=== PATIENT | male | born 1975 | race Two or more races ===

== ENCOUNTER 2022-11-03 13:42 | Day surgery (SDC) | payer SELFPAY ==
[2022-11-03] MEDS ORDERED: ACETAMINOPHEN 1000 MG/100 ML BAG IVPB ONE (15:23)
[2022-11-03] MEDS ORDERED: SODIUM CHLORIDE 0.9% 500 ML INFUS.BAG IV ONE ×2 (15:47→19:23)
[2022-11-03 16:19] LABS: BASO % 0.2 % (0-2.0); EOS % 0.3 % (0-4.5); HEMATOCRIT 43.4 % (35.4-49); HEMOGLOBIN 14.7 GM/dL (11.7-16.9); LYMPH % 15.2 % (8-40); MCH 32.7 pg (25.7-33.7); MEAN CELL VOLUME 96.4 fl (80-96); MEAN PLT VOLUME 8.1 fl (7.5-11.1); MONO % 8.4 % (3.8-10.2); NEUT % 75.9 % (42.8-82.8); PLATELET COUNT 334 10^3/uL (134-434); WHITE BLOOD COUNT 10.5 K/mm3 (4.0-10.0)
[2022-11-03 16:34] LABS: POTASSIUM 4.7 mmol/L (3.5-5.1); PROTHROMBIN TIME (PATIENT) 11.6 SEC (9.7-13.0)
[2022-11-03 16:36] LABS: CALCIUM 9.5 mg/dL (8.5-10.1)
[2022-11-03 16:37] LABS: BLOOD UREA NITROGEN 18.2 mg/dL (7-18)
[2022-11-03 16:39] LABS: CREATININE 1.6 mg/dL (0.55-1.3)
[2022-11-03 16:41] LABS: BILIRUBIN,TOTAL 0.7 mg/dL (0.2-1); TOT PROT 7.8 g/dl (6.4-8.2)
[2022-11-03 16:47] LABS: EPI CELLS 12 /uL (0-25.1); HYALINE CASTS 0 /uL (0-3.1); PH,URINE 6.5 (5.0-8.0); URINE APPEARANCE CLEAR; URINE BACTERIA 15 /uL (0-1359); URINE BILIRUBIN NEGATIVE (NEGATIVE); URINE COLOR YELLOW; URINE GLUCOSE (UA) NEGATIVE (NEGATIVE); URINE KETONE 2+ (NEGATIVE); URINE LEUK ESTERASE TRACE (NEGATIVE); URINE NITRITE NEGATIVE (NEGATIVE); URINE PROTEIN TRACE (NEGATIVE); URINE RBC 13 /uL (0-23.9); URINE WBC 32 /uL (0-25.8)
[2022-11-03] MEDS ORDERED: TAMSULOSIN HCL 0.4 MG CAP PO ONE (19:23)
[2022-11-03] MEDS ORDERED: CEFTRIAXONE 1,000 MG in DEXTROSE 5%-WATER - 50 ML IVPB ONE (19:23)
[2022-11-03] MEDS ORDERED: TAMSULOSIN HCL 0.4 MG CAP ONE (19:52)
[2022-11-03] MEDS ORDERED: CEFTRIAXONE 1 GM/50 ML BAG ONE (19:52)
[2022-11-03] MEDS ORDERED: hydrALAZINE HCL 20 MG/ML VIAL IVPUSH ONE ×2 (20:01→23:30)
[2022-11-03] MEDS ORDERED: hydrALAZINE HCL 20 MG/ML VIAL ONE ×2 (20:09→23:42)
[2022-11-04] MEDS: SODIUM CHLORIDE 1,000 ML IV SCH (00:33)
[2022-11-04 04:22] VITALS: BMI 25.0
[2022-11-04] MEDS: traMADol HCL 50 MG TABLET PO PRN ×2 (06:57→21:44)
[2022-11-04] MEDS: TAMSULOSIN HCL 0.4 MG CAP PO SCH (08:23)
[2022-11-04 09:16] LABS: BASO % 0.4 % (0-2.0); EOS % 0.4 % (0-4.5); HEMATOCRIT 38.1 % (35.4-49); HEMOGLOBIN 12.5 GM/dL (11.7-16.9); LYMPH % 19.8 % (8-40); MCH 32.2 pg (25.7-33.7); MCHC 32.9 g/dl (32.0-35.9); MEAN CELL VOLUME 97.7 fl (80-96); MEAN PLT VOLUME 8.7 fl (7.5-11.1); MONO % 8.5 % (3.8-10.2); NEUT % 70.9 % (42.8-82.8); PLATELET COUNT 311 10^3/uL (134-434); RDW 12.7 % (11.9-15.9); WHITE BLOOD COUNT 7.5 K/mm3 (4.0-10.0)
[2022-11-04 09:30] LABS: POTASSIUM 4.3 mmol/L (3.5-5.1)
[2022-11-04 09:34] LABS: CALCIUM 8.4 mg/dL (8.5-10.1)
[2022-11-04 09:35] LABS: BLOOD UREA NITROGEN 18.6 mg/dL (7-18)
[2022-11-04 09:38] LABS: CREATININE 1.4 mg/dL (0.55-1.3)
[2022-11-04] MEDS: CEFTRIAXONE 1 GM in DEXTROSE 5%-WATER - 50 ML IVPB SCH (09:58)
[2022-11-04] MEDS: amLODIPine BESYLATE 5 MG TABLET (FP) PO SCH (09:58)
[2022-11-04] MEDS: HEPARIN NA (PORCINE) 5,000 UNITS/ML 1ML VIAL SQ SCH ×2 (14:29→21:49)
[2022-11-05] MEDS: SODIUM CHLORIDE 1,000 ML IV SCH ×3 (03:22→21:52)
[2022-11-05] MEDS: HEPARIN NA (PORCINE) 5,000 UNITS/ML 1ML VIAL SQ SCH ×3 (06:36→21:52)
[2022-11-05 09:44] LABS: BASO % 0.3 % (0-2.0); EOS % 1.3 % (0-4.5); HEMATOCRIT 37.9 % (35.4-49); HEMOGLOBIN 12.5 GM/dL (11.7-16.9); LYMPH % 21.4 % (8-40); MCH 31.8 pg (25.7-33.7); MCHC 32.9 g/dl (32.0-35.9); MEAN CELL VOLUME 96.6 fl (80-96); MEAN PLT VOLUME 8.4 fl (7.5-11.1); MONO % 9.6 % (3.8-10.2); NEUT % 67.4 % (42.8-82.8); PLATELET COUNT 323 10^3/uL (134-434); RBC 3.93 M/mm3 (4.00-5.60); RDW 12.3 % (11.9-15.9); WHITE BLOOD COUNT 7.4 K/mm3 (4.0-10.0)
[2022-11-05 09:45] LABS: INR 1.03 (0.83-1.09); PROTHROMBIN TIME (PATIENT) 11.9 SEC (9.7-13.0)
[2022-11-05] MEDS: CEFTRIAXONE 1 GM in DEXTROSE 5%-WATER - 50 ML IVPB SCH (09:47)
[2022-11-05] MEDS: TAMSULOSIN HCL 0.4 MG CAP PO SCH (09:48)
[2022-11-05] MEDS: amLODIPine BESYLATE 5 MG TABLET (FP) PO SCH (09:48)
[2022-11-05 10:01] LABS: POTASSIUM 4.4 mmol/L (3.5-5.1)
[2022-11-05 10:04] LABS: CALCIUM 8.6 mg/dL (8.5-10.1)
[2022-11-05 10:05] LABS: BLOOD UREA NITROGEN 16.6 mg/dL (7-18); MAGNESIUM 1.9 mg/dL (1.8-2.4)
[2022-11-05 10:08] LABS: CREATININE 1.4 mg/dL (0.55-1.3)
[2022-11-05 10:10] LABS: TOT PROT 6.1 g/dl (6.4-8.2)
[2022-11-05] MEDS ORDERED: amLODIPine BESYLATE 5 MG TABLET (FP) PO ONE (18:57)
[2022-11-05] MEDS: BACITRACIN ZINC 15 GM TUBE TOPICAL OINTMENT TP SCH (21:53)
[2022-11-06] MEDS: SODIUM CHLORIDE 1,000 ML IV SCH (05:10)
[2022-11-06] MEDS ORDERED: hydrALAZINE HCL 10 MG TABLET PO ONE (08:45)
[2022-11-06] MEDS: CEFTRIAXONE 1 GM in DEXTROSE 5%-WATER - 50 ML IVPB SCH (09:22)
[2022-11-06] MEDS: TAMSULOSIN HCL 0.4 MG CAP PO SCH (09:22)
[2022-11-06] MEDS: BACITRACIN ZINC 15 GM TUBE TOPICAL OINTMENT TP SCH (09:24)
[2022-11-06] MEDS ORDERED: amLODIPine BESYLATE 10 MG TABLET (FP) PO SCH (10:00)
[2022-11-06 11:18] LABS: BASO % 0.5 % (0-2.0); HEMOGLOBIN 13.8 GM/dL (11.7-16.9); LYMPH % 23.2 % (8-40); MCH 32.6 pg (25.7-33.7); MCHC 34.5 g/dl (32.0-35.9); MEAN CELL VOLUME 94.4 fl (80-96); MEAN PLT VOLUME 7.8 fl (7.5-11.1); MONO % 7.8 % (3.8-10.2); NEUT % 66.5 % (42.8-82.8); PLATELET COUNT 351 10^3/uL (134-434); RBC 4.24 M/mm3 (4.00-5.60); RDW 12.5 % (11.9-15.9); WHITE BLOOD COUNT 5.8 K/mm3 (4.0-10.0)
[2022-11-06 11:41] LABS: POTASSIUM 4.2 mmol/L (3.5-5.1)
[2022-11-06 11:44] LABS: ALBUMIN 3.2 g/dl (3.4-5.0); BLOOD UREA NITROGEN 14.1 mg/dL (7-18); CALCIUM 9.5 mg/dL (8.5-10.1)
[2022-11-06 11:47] LABS: CREATININE 1.1 mg/dL (0.55-1.3)
[2022-11-06 11:49] LABS: BILIRUBIN,TOTAL 0.7 mg/dL (0.2-1)
[2022-11-06] MEDS ORDERED: SODIUM CHLORIDE 0.9% P/F 10 ML VIAL IJ ONE (12:43)
[2022-11-06] MEDS ORDERED: DEXAMETHASONE SOD PHOSPHATE 4 MG/1 ML VIAL ONE (12:43)
[2022-11-06] MEDS ORDERED: PROPOFOL 20 ML ONE (12:43)
[2022-11-06] MEDS ORDERED: ONDANSETRON 4 MG/2 ML VIAL ONE (12:43)
[2022-11-06] MEDS ORDERED: LIDOCAINE HCL/PF 2% SDV 5ML VIAL ONE (12:43)
[2022-11-06] MEDS ORDERED: ceFAZolin SODIUM 1 GM VIAL ONE (12:43)
[2022-11-06] MEDS ORDERED: MIDAZOLAM HCL 2 MG/2 ML SINGLE DOSE VIAL ONE (12:44)
[2022-11-06] MEDS ORDERED: ALBUTEROL SO4 HFA INHALER IH ONE (13:19)
[2022-11-06] MEDS ORDERED: ACETAMINOPHEN INJECTION 100 ML IVPB ONE (13:19)
[2022-11-06] MEDS ORDERED: ceFAZolin SODIUM 1 GM VIAL IVPB ONE (14:00)
[2022-11-06] MEDS ORDERED: IOHEXOL 300 MG/ML INFUS..BTL IJ ONE ×2 (14:03)
[2022-11-06] MEDS ORDERED: traMADol HCL 50 MG TABLET PO PRN (14:40)
[2022-11-06] MEDS ORDERED: SODIUM CHLORIDE 1,000 ML IV SCH (14:40)
[2022-11-06] MEDS ORDERED: LACTATED RINGERS SOLUTION 1,000 ML IV SCH (14:45)
[2022-11-06 16:32] VITALS: BP 138/96; PULSE 72; RESP 20; TEMP 97.9
[2022-11-06] MEDS ORDERED: BACITRACIN ZINC 15 GM TUBE TOPICAL OINTMENT TP SCH (22:00)
[2022-11-06] MEDS ORDERED: HEPARIN NA (PORCINE) 5,000 UNITS/ML 1ML VIAL SQ SCH (22:00)
[2022-11-07] MEDS ORDERED: TAMSULOSIN HCL 0.4 MG CAP PO SCH (08:30)
[2022-11-07] MEDS ORDERED: CEFTRIAXONE 1 GM in DEXTROSE 5%-WATER - 50 ML IVPB SCH (10:00)
[2022-11-07] MEDS ORDERED: amLODIPine BESYLATE 10 MG TABLET (FP) PO SCH (10:00)
[2022-11-07 22:07] LABS: HCV ALPHA 2 MACRO CHART 122 mg/dL (110-276); NECRO.INFLAM ACT.SCORE 0.58 (0.00-0.17); NECROINFLAM. ACTIVITY GRADE A2-Moderate activity (.)
== END 2022-11-06 18:38 | disposition home or self-care (01) ==
LOC: JER 13:42 → UNDOADMOB 19:23 → JERBED 19:23 → JASUSAT 11-04 02:32 → J8W 11-04 02:32 → JERBED 11-04 02:32 → J8W 11-06 14:52 → JASUSAT 11-06 18:38
PROVIDERS: ATTEND Nurse Practitioner Acute Care
PROC: 0T778DZ Dilation of Left Ureter with Intraluminal Device, Via Natural or Artificial Opening Endoscopic (ICD-10-PCS; principal; 2022-11-04)
DX: N13.2 Hydronephrosis with renal and ureteral calculous obstruction (principal)
CPT/HCPCS: 0241U-QW; 36415; 71046-TC-FY; 74177-TC; 76000-TC-FY; 76775-TC; 80048; 80053; 81003; 82172; 82977; 83010; 83690; 83735; 83883; 84460; 84484; 85025; 85610; 85730; 86704; 86705; 86708; 86850; 86900; 86901; 87086; 87340; 87350; 93005; 93010; 94760; 99285-25; C1758; C2617; J1644; Q9967